=== PATIENT | male | born 1950 | race Caucasian/White ===

== ENCOUNTER 2017-09-22 19:17 | Emergency (ER) | payer MEDICAID ==
--- NOTE | 2017-09-22 20:32 | C.PDOC ---
History Of Present Illness Patient is a 67 y/o male who presents to the ED with complaints of abdominal pain and constipation. Patient admits last bowel movement was 7 days ago and notes taking OTC medication without relief. Denies any nausea, vomiting, fever, or chills. Patient also notes mild headache that has since resolved. No other physical complaints at this time. Time Seen by Provider: 09/22/17 20:30 Chief Complaint (Nursing): Abdominal Pain History Per: Patient History/Exam Limitations: no limitations Onset/Duration Of Symptoms: Days (7 days) Current Symptoms Are (Timing): Still Present Severity: Moderate Pain Scale Rating Of: 4 Location Of Pain/Discomfort: Diffuse Quality Of Discomfort: "Pain" Associated Symptoms: Constipation. denies: Fever, Chills, Nausea, Vomiting Alleviating Factors: denies: OTC Meds Last Bowel Movement: Days Ago (7 days ago) Recent travel outside of the [place]: No Additional History Per: Patient Past Medical History Reviewed: Historical Data, Nursing Documentation, Vital Signs Vital Signs: Last Vital Signs Temp 98.4 F 09/22/17 23:32 Pulse 83 09/23/17 03:00 Resp 20 09/23/17 03:00 BP 100/72 09/23/17 03:00 Pulse Ox 98 09/23/17 03:00 - Medical History PMH: No Chronic Diseases Surgical History: No Surg Hx Family History: States: No Known Family Hx - Social History Hx Tobacco Use: Yes (heavy smoker, > 10 cigarettes daily) Hx Alcohol Use: No Hx Substance Use: No Review Of Systems Constitutional: Negative for: Fever, Chills Gastrointestinal: Positive for: Abdominal Pain, Constipation. Negative for: Nausea, Vomiting Neurological: Positive for: Headache (mild; has since resolved) Physical Exam - Physical Exam Appears: Non-toxic, No Acute Distress Skin: Warm, Dry Head: Normacephalic Eye(s): bilateral: PERRL, EOMI Oral Mucosa: Moist Chest: Symmetrical Cardiovascular: Rhythm Regular, No Murmur Respiratory: No Decreased Breath Sounds, No Rales, No Rhonchi, No Wheezing Gastrointestinal/Abdominal: Soft, Distention (mild), No Guarding, No Rebound, Other (tympanic to percussion) Neurological/Psych: Oriented x3 ED Course And Treatment - Laboratory Results Result Diagrams: 09/22/17 21:32 09/22/17 21:32 O2 Sat by Pulse Oximetry: 98 (room air) Pulse Ox Interpretation: Normal - Radiology CXR: Interpreted by Me, Viewed By Me CXR Interpretation: No: Infiltrates, Fracture, Pnemothorax - Other Rad obstr X-Ray: Interpreted by Me, Viewed By Me Interpretation: mild ileus, no obstr Progress Note: Obstructive series XR and blood work ordered. IV fluids administered. Disposition Counseled Patient/Family Regarding: Studies Performed, Diagnosis, Need For Followup, Rx Given - Disposition Referrals: Blake Londono [Staff Provider] - Disposition: HOME/ ROUTINE Disposition Time: 20:31 Condition: FAIR Additional Instructions: please return if symptoms recur Prescriptions: Docusate Sodium [Colace] 100 mg PO BID #10 capsule Polyethylene Glycol 3350 [Miralax] 17 gm PO DAILY #270 ml Instructions: Constipation (DC), High Fiber Diet (ED) Forms: [employer] (Hungarian) Print Language: ARMENIAN - Clinical Impression Clinical Impression: Abdominal pain, Constipation - Scribe Statement The provider has reviewed the documentation as recorded by the Scribrajani Donahue All medical record entries made by the Scribe were at my direction and personally dictated by me. I have reviewed the chart and agree that the record accurately reflects my personal performance of the history, physical exam, medical decision making, and the department course for this patient. I have also personally directed, reviewed, and agree with the discharge instructions and disposition.
[2017-09-22] MEDS ORDERED: Sodium Chloride 0.9% 1,000 ML IV ONE (21:12)
[2017-09-22] MEDS ORDERED: Sodium Chloride 0.9% 1,000 ML ONE (21:31)
[2017-09-22 21:48] LABS: BASO % 0.5 % (0.0-2.0); EOS # 0.5 K/uL (0.0-0.7); EOS % 5.8 % (0.0-4.0); HEMOGLOBIN 14.1 g/dL (12.0-18.0); LYMPH # 3.2 K/uL (1.0-4.3); LYMPH % 34.6 % (20.0-40.0); MEAN CELL VOLUME 87.9 fL (80.0-94.0); MEAN CORPUSCULAR HEMOGLOBIN 29.9 pg (27.0-31.0); MEAN PLATELET VOLUME 8.8 fL (7.2-11.7); MONO # 0.5 K/uL (0.0-0.8); MONO % 5.1 % (0.0-10.0); RBC 4.73 Mil/uL (4.40-5.90); RED CELL DISTRIBUTION WIDTH 15.1 % (11.5-14.5); WHITE BLOOD COUNT 9.3 K/uL (4.8-10.8)
[2017-09-22 22:15] LABS: CALCIUM 9.4 mg/dl (8.6-10.4); GFR AFRICAN-AMERICAN > 60; GFR NON-AFRICAN AMERICAN > 60; LIPASE 43 U/L (23-300)
[2017-09-22 22:18] LABS: ALB/GLOB RATIO 1.1 (1.0-2.1); ALBUMIN 4.5 g/dL (3.5-5.0); ALT/SGPT 14 U/L (21-72); AST/SGOT 51 U/L (17-59); BLOOD UREA NITROGEN 9 mg/dL (9-20)
[2017-09-23] MEDS ORDERED: Magnesium Citrate Oral SOL (300 ml) PO ONE (01:19)
[2017-09-23] MEDS ORDERED: Magnesium Citrate Oral SOL (300 ml) ONE (01:49)
[2017-09-23 04:46] VITALS: RESP 20; O2SAT 98
[2017-09-23] MEDS ORDERED: Peg-Electrolyte Oral Soln 4L (Golytely) PO ONE (05:52)
[2017-09-23 06:07] VITALS: BP 110/72; PULSE 81; TEMP 97.4
--- NOTE | 2017-09-23 08:45 | RAD ---
PROCEDURE: Radiographs of the chest and abdomen (obstructive series) HISTORY: abd pain, constipation COMPARISON: Chest 08/31/2011 TECHNIQUE: AP radiograph of the chest, with upright and supine radiographs of the abdomen. FINDINGS: CHEST: Lungs: Interval left inferolateral peripheral discoid atelectasis and/or interval scarring. Trace contiguous left pleural thickening suggested. Cardiovascular: Normal size heart. No pulmonary vascular congestion. Pleura: No pleural fluid. No pneumothorax. Left inferolateral trace pleural thickening Other findings: None. ABDOMEN AND PELVIS: Bowel: Redundant colon. Small and large bowel with air-fluid levels left lumbosacral level stool small bowel loops- mildly dilated the proximal small bowel dilatation to suggest high-grade obstruction here. Cephalad to this small bowel loops normal in caliber are possible mural thickening (versus incomplete distention.). Moderate scattered stool retention Free air: None. Bones: Senescent changes. Other findings: None. IMPRESSION: No pulmonary infiltrate. Interval left inferolateral discoid like atelectasis and/or fibrosis. Trace contiguous left lateral pleural thickening suspect. No evidence of a high-grade mechanical bowel obstruction. . Moderate stool retention. Possible ileus. Possible enteritis. Clinical follow-up recommended
== END 2017-09-23 06:16 | disposition home or self-care (01) ==
LOC: C.ER 19:17
DX: K59.00 Constipation, unspecified (principal); R10.9 Unspecified abdominal pain; F17.210 Nicotine dependence, cigarettes, uncomplicated
CPT/HCPCS: 74022; 80053; 83690; 85025; 96360; 99285; J7040